=== PATIENT | female | born 1975 | race Caucasian/White ===

== ENCOUNTER 2017-10-30 22:04 | Emergency (ER) | payer MEDICAID ==
[~2017-10-30] VITALS: Ht 154.9 cm; Wt 113.4 kg
[~2017-10-30 22:04] MED LIST: ALDACTONE25 MG PO; AMITRIPTYLINE H25 M2 PO; AUGMENTIN 875875 MG PO; HYDROCHLOROTHIA25 M2 PO; LASIX 20 MG TAB20 MG PO; NAPROSYN500 MG PO; NORCO 5-325 TA1 EACH PO; OMEPRAZOLE20 M2 PO; ONDANSETRON HCL4 M2 PO; PHENERGAN 25 MG25 MG PO; POLYCAL PO; SEROQUEL 25 MG25 M1 PO; TRAMADOL 50 MG50 MG PO; XANAX1 MG PO; XIFAXAN550 M1 PO
[2017-10-30] MEDS ORDERED: IRON325 (22:44)
[2017-10-30] MEDS ORDERED: levothyroxine (22:46)
[2017-10-30] MEDS ORDERED: KLOR-CON 1010 MEQ (22:47)
[2017-10-30] MEDS ORDERED: SEROQUEL200 MG (22:47)
[2017-10-30] MEDS ORDERED: ZOLOFT25 MG (22:48)
[2017-10-30] MEDS ORDERED: ZANAFLEX4 MG (22:48)
[2017-10-30 22:59] LABS: ABSOLUTE EOSINOPHILS 0.2 thou/uL (0.0-0.7); ABSOLUTE LYMPHOCYTES 1.8 thou/uL (0.8-5.3); ABSOLUTE MONOCYTES 0.5 thou/uL (0.0-1.2); ABSOLUTE NEUTROPHILS 4.2 thou/uL (1.6-8.1); BASOPHILS 0.7 %; EOSINOPHILS 2.8 %; HEMATOCRIT 28.1 % (37.0-47.0); HEMOGLOBIN 9.2 gm/dL (12.0-15.0); LYMPHOCYTES 26.3 %; MCH 24.9 pg (26.0-34.0); MCHC 32.9 g/dL (28.0-37.0); MCV 75.5 fL (80.0-100.0); MPV 8.4 fl. (7.2-11.1); NUCLEATED RBCS 0 /100WBC; PLATELET COUNT* 112 thou/uL (150-400); POLYS 62.2 %; RBC 3.72 mil/uL (4.20-5.00); RDW-CV 26.6 % (10.5-14.5); WBC 6.7 thou/uL (4.0-11.0)
[2017-10-30 23:05] LABS: CALCIUM 8.4 mg/dL (8.5-10.1); CREATININE 1.1 mg/dL (0.6-1.3)
[2017-10-30 23:10] LABS: ALBUMIN 2.7 g/dL (3.4-5.0); TOTAL BILIRUBIN 1.1 mg/dL (<0.1-1.0); TOTAL PROTEIN 6.6 g/dL (6.4-8.2)
[2017-10-30 23:36] LABS: URINE BILIRUBIN NEGATIVE (Negative); URINE BLOOD NEGATIVE (Negative); URINE CLARITY CLEAR; URINE COLOR YELLOW; URINE GLUCOSE-RANDOM NEGATIVE (Negative); URINE KETONES NEGATIVE (Negative); URINE LEUKOCYTES-REFLEX NEGATIVE (Negative); URINE NITRITE-REFLEX NEGATIVE (Negative); URINE PROTEIN NEGATIVE (Negative); URINE SPECIFIC GRAVITY <= 1.005 (1.005-1.030); URINE UROBILINOGEN 0.2 E.U./dl (0.2-1.0)
[2017-10-31] MEDS ORDERED: ZOFRAN ODT4 MG PO (00:09)
[2017-10-31 00:34] VITALS: BP 136/76
[2017-10-31 02:10] LABS: ANISOCYTOSIS 3+; PLATELET ESTIMATE DECREASED; POLYCHROMASIA 1+
== END 2017-10-31 00:34 | disposition home or self-care (01) ==
LOC: M.ERS 22:04
PROVIDERS: Nurse Practitioner Family
DX: R11.2 Nausea with vomiting, unspecified (principal); R42 Dizziness and giddiness; Z85.89 Personal history of malignant neoplasm of other organs and systems; Z88.6 Allergy status to analgesic agent; Z91.041 Radiographic dye allergy status; Z88.5 Allergy status to narcotic agent; Z88.8 Allergy status to other drugs, medicaments and biological substances

== ENCOUNTER 2017-11-10 21:48 | Emergency (ER) | payer MEDICAID ==
[~2017-11-10] VITALS: Ht 154.9 cm; Wt 120.2 kg
[~2017-11-10 21:48] MED LIST changes: +IRON325; +KLOR-CON 1010 MEQ; +SEROQUEL200 MG; +ZANAFLEX4 MG; +ZOFRAN ODT4 MG PO; +ZOLOFT25 MG; +levothyroxine
[2017-11-10 22:44] VITALS: BP 141/80
== END 2017-11-10 22:47 | disposition left against medical advice (07) ==
LOC: M.ERS 21:48
DX: M54.5 Low back pain (principal); Z85.048 Personal history of other malignant neoplasm of rectum, rectosigmoid junction, and anus; Z88.6 Allergy status to analgesic agent; Z91.041 Radiographic dye allergy status; Z88.5 Allergy status to narcotic agent